=== PATIENT | male | born 1960 | race Caucasian/White ===

== ENCOUNTER 2017-01-14 19:30 | Emergency (ER) | payer OTHER ==
[~2017-01-14] VITALS: Ht 177.8 cm; Wt 100.0 kg
[2017-01-14] MEDS ORDERED: HYDROmorphone 1 MG/ML, 1ML ONE (20:18)
[2017-01-14] MEDS ORDERED: ONDANSETRON ODT 4 MG ONE (20:18)
[2017-01-14] MEDS ORDERED: HYDROmorphone 1 MG/ML, 1ML IM ONE (20:30)
[2017-01-14] MEDS ORDERED: ONDANSETRON ODT 4 MG PO ONE (20:30)
[2017-01-14 20:49] LABS: HEMOGLOBIN 14.9 g/dL (13.7-18.0)
[2017-01-14 20:58] LABS: BLOOD UREA NITROGEN 12 mg/dL (7-18)
[2017-01-14] MEDS ORDERED: KETOROLAC 30 MG/1 ML IM ONE (21:30)
[2017-01-14] MEDS ORDERED: OXYcodone/APAP 5/325MG TABLET PO ONE (21:30)
[2017-01-14] MEDS ORDERED: OXYcodone/APAP 5/325MG TABLET ONE (21:51)
[2017-01-14] MEDS ORDERED: KETOROLAC 30 MG/1 ML ONE (21:51)
[2017-01-14 22:21] VITALS: BP 125/60
== END 2017-01-14 22:23 | disposition home or self-care (01) ==
LOC: ED 20:17
DX: M25.572 Pain in left ankle and joints of left foot (principal); M54.5 Low back pain; G89.29 Other chronic pain; Z88.6 Allergy status to analgesic agent
CPT/HCPCS: 36415; 73610; 80048; 82040; 84550; 85025; 85651; 96372; 99285; J1170; J1885; Q0162